=== PATIENT | male | born 1940 | race African-American/Black ===

== ENCOUNTER 2018-10-14 01:19 | Inpatient (IN) | payer OTHER ==
[~2018-10-14] VITALS: Ht 162.6 cm; Wt 68.7 kg
[~2018-10-14 01:19] MED LIST: ALBUTEROL INHAL17 GM IH; ASPIRIN325; CARVEDILOL25 MG PO; COUMADIN 5 MG TA5 M1 PO; FUROSEMIDE 40 M40 M1 PO; K-DUR10 ME1 PO; LISINOPRIL20 MG PO; PREDNISONE50 MG PO; VIBRAMYCIN 100100 MG PO; XANAX 1 MG TABLE1 MG PO
[2018-10-14 01:38] VITALS: BP 134/65
[2018-10-14 02:20] LABS: ABSOLUTE NEUTROPHILS 6.9 thou/uL (1.4-8.2); BASOPHILS 0.3 % (0.0-2.0); EOSINOPHILS 1.6 % (0.0-3.0); HEMATOCRIT 38.7 % (42.0-52.0); HEMOGLOBIN 12.6 gm/dL (14.0-18.0); LYMPHOCYTES 5.3 % (24.0-44.0); MCH 28.2 pg (26.0-34.0); MCHC 32.5 g/dL (28.0-37.0); MCV 86.7 fL (80.0-100.0); MONOCYTES 5.2 % (1.0-8.0); PLATELET COUNT 374 thou/uL (150-400); POLYS 87.6 % (36.0-66.0); RBC 4.46 mil/uL (4.50-6.00); RDW 16.1 % (10.5-14.5); WBC 7.9 thou/uL (4.0-11.0)
[2018-10-14 02:24] LABS: ANION GAP 9 mmol/L (7-16); BUN 29 mg/dL (7-18); CALCIUM 9.6 mg/dL (8.5-10.1); CHLORIDE 108 mmol/L (98-107); CO2 27 mmol/L (21-32); CREATININE 1.4 mg/dL (0.7-1.3); GLUCOSE 114 mg/dL (74-106); SODIUM 144 mmol/L (136-145)
[2018-10-14 02:29] LABS: APTT 27.8 Seconds (24.5-32.8); PROTIME 10.5 Seconds (9.3-11.4)
[2018-10-14 02:33] LABS: ALBUMIN 2.9 g/dL (3.4-5.0); LIPASE 251 U/L (73-393); MAGNESIUM 2.2 mg/dL (1.8-2.4); SGOT 15 U/L (15-37); SGPT 18 U/L (30-65); TOTAL BILIRUBIN 0.3 mg/dL (<0.1-1.0); TOTAL PROTEIN 8.1 g/dL (6.4-8.2); TROPONIN-I <0.06 ng/mL (<0.06)
[2018-10-14 02:42] LABS: POTASSIUM 5.7 mmol/L (3.5-5.1)
[2018-10-14 03:05] LABS: CASTS None Seen /LPF (None Seen); MUCUS None Seen strn/LPF (None Seen); SQUAMOUS None Seen /LPF (0-3); URINE RBC 3-10 Few /HPF (0-2); URINE WBC-REFLEX >25 Many /HPF (0-5)
[2018-10-14 03:06] LABS: BACTERIA-REFLEX >30 Many /HPF (None Seen); CRYSTALS None Seen /LPF (None Seen)
[2018-10-14 03:23] LABS: URINE CLARITY CLOUDY; URINE COLOR YELLOW
[2018-10-14 03:24] LABS: URINE BILIRUBIN NEGATIVE (Negative); URINE GLUCOSE-RANDOM* NEGATIVE (Negative); URINE KETONES NEGATIVE (Negative); URINE PROTEIN (DIPSTICK) 2+ (Negative)
[2018-10-14 03:25] LABS: URINE BLOOD 2+ (Negative); URINE LEUKOCYTES-REFLEX 3+ (Negative); URINE NITRITE-REFLEX POSITIVE (Negative); URINE UROBILINOGEN 0.2 E.U./dl (0.2-1.0)
[2018-10-14 04:43] VITALS: BP 138/64
--- NOTE | 2018-10-14 05:15 | NUR ---
Pt. admitted to the unit from the emergency room accompanied by staff. He is alert with some confusion. Admission assessment and history is completed. No c/o shortness of air. No emesis. Bed alarm is on.
[2018-10-14 05:30] VITALS: BP 155/59
[2018-10-14] MEDS ORDERED: VITAMIN D1000 UNI1 PO (05:52)
[2018-10-14] MEDS ORDERED: HYDRALAZINE 2525 MG PO (05:54)
[2018-10-14] MEDS ORDERED: IRON325 PO (05:55)
[2018-10-14] MEDS ORDERED: FLOMAX0.4 MG PO (05:56)
[2018-10-14] MEDS ORDERED: VITAMIN B-1100 M1 PO (05:56)
[2018-10-14] MEDS ORDERED: MILK OF MA2400 MG/10 PO (05:59)
[2018-10-14] MEDS ORDERED: LIDOCAINE 2%2 %/5 GM TRANSDERM (06:01)
[2018-10-14] MEDS ORDERED: PROSCAR 5MG TABL5 MG PO (06:09)
[2018-10-14 07:22] VITALS: BP 136/58
--- NOTE | 2018-10-14 09:00 | NUR ---
cm visited with pt at bedside, rt dcp, transition back to [place]. "yep ok"/reginald. pt is a & o 2-3 with some forgetfulness, pleasant and able to make his needs now. pt reports " doesnt usually wear oxygen at facility , uses wheel chair. able to stand with assistance. able to feed him self, if set up for meal."/reginald. will cont following as needed for dc needs.
--- NOTE | 2018-10-14 12:15 | 2DMMODE ---
[facility] [place] [address] 2 D/M-MODE ECHOCARDIOGRAM Name: ZHENGRHYS Badillo Room #: 452-P ADM IN .R.#: [id number] Admission: 10/14/18 Attend Phys: Jason Alva MD Discharge: Date of : 40 Date of Service: 10/14/18 1215 Report #: [id number] THIS REPORT FOR: //name// APPROVED REPORT Study performed: 10/14/2018 11:15:58 EXAM: Comprehensive 2D, Doppler, and color-flow Echocardiogram Patient Location: Bedside Room #: [facility] Status: routine BSA: 1.74 HR: 68 bpm BP: 136/58 mmHg Rhythm: Pacemaker/Irregular Other Information Study Quality: Adequate Technically limited study due to heavy snoring/lungs.. Indications Acute respiratory failure. Hx: Pacemaker, CHF, PE, HTN, Tob, Etoh abuse. 2D Dimensions RVDd: 35.66 mm IVSd: 12.85 (7-11mm) LVOT Diam: 19.66 (18-24mm) LVDd: 40.13 mm PWd: 12.32 (7-11mm) Ascending Ao: 31.55 (22-36mm) LVDs: 25.68 (25-40mm) Aortic Root: 31.47 mm Volumes Left Atrial Volume (Systole) Single Plane 4CH: 32.28 mL Single Plane 2CH: 64.64 mL LA ESV Index: 29.00 mL/m2 Aortic Valve AoV Peak Adam.: 1.62 m/s AO Peak Gr.: 10.50 mmHg LVOT Max P.74 mmHg LVOT Max V: 1.20 m/s JEREMIAH Vmax: 2.24 cm2 Mitral Valve [facility] [address] [address] 2 D/M-MODE ECHOCARDIOGRAM [facility] Room #: 452-P ADM IN ..#: [id number] Admission: 10/14/18 Attend Phys: Jason Alva MD Discharge: Date of : 40 Date of Service: 10/14/18 1215 Report #: [id number] MV Decel. Time: 153.92 ms MV E Max Adam.: 1.30 m/s Pulmonary Valve PV Peak Adam.: 1.21 m/s PV Peak Gr.: 5.90 mmHg Tricuspid Valve TR Peak Adam.: 2.27 m/s RAP Estimate: 10.00 mmHg TR Peak Gr.: 20.57 mmHg PA Pressure: 31.00 mmHg Left Ventricle The left ventricle is normal size. There is normal LV segmental wall motion. Mild concentric left ventricular hypertrophy. Left ventricular systolic function is normal. LVEF is 60-65%. This study is not technically sufficient to allow evaluation of the LV diastolic function. Right Ventricle The right ventricle is normal size. The right ventricular systolic function is normal. Atria The left atrium size is normal. The right atrium size is normal. Pacemaker lead is present in the right atrium. Aortic Valve Aortic valve leaflets is mildly thickened and calcified. Trace aortic regurgitation. There is no aortic valvular stenosis. Mitral Valve Mitral valve leaflets are mildly thickened. Trace mitral regurgitation. No evidence of mitral valve stenosis. Tricuspid Valve The tricuspid valve is normal in structure. Trace to mild tricuspid regurgitation. Estimated PAP is 30mmHg. Pulmonic Valve The pulmonary valve is normal in structure. Trace pulmonic regurgitation. Great Vessels The aortic root is normal in size. The ascending aorta is normal in size. IVC is dilated and collapses <50% with inspiration. [facility] [address] [place] [address] 2 D/M-MODE ECHOCARDIOGRAM Name: [facility] Room #: 452-P [facility] IN .R.#: [id number] Admission: 10/14/18 Attend Phys: Jason Alva MD Discharge: Date of : 40 Date of Service: 10/14/18 1215 Report #: [id number] Pericardium There is no pericardial effusion. <Conclusion> The left ventricle is normal size. Mild concentric left ventricular hypertrophy. Left ventricular systolic function is normal. The right ventricle is normal size. The left atrium size is normal. The right atrium size is normal. Pacemaker lead is present in the right atrium. Aortic valve leaflets is mildly thickened and calcified. Trace aortic regurgitation. Trace mitral regurgitation. Trace to mild tricuspid regurgitation. Estimated PAP is 30mmHg. <ELECTRONICALLY SIGNED> By: Leonardo Palmer MD 10/14/185 14 14 Leonardo Palmer MD /INF
[2018-10-14 15:03] VITALS: BP 136/66
--- NOTE | 2018-10-14 16:29 | EKG ---
[address] [place] [email or web address] [address] ELECTROCARDIOGRAM REPORT Name: RHYS CALZADA Room #: 452-P ADM IN M.R.#: [id number] Admission: 10/14/18 Attend Phys: Jason Alva MD Discharge: Date of : 40 Report #: [id number] THIS REPORT FOR: //name// [facility] ED Test Date: 2018-10-14 Test Time: 02:14:09 Pat Name: RHYS CALZADA Department: Room: [facility] Gender: M Outpatient Psychiatrist: MADELYN : 1940 Requested By: Sebas Ferrera Order Number: [id number] MD: Jb Gallardo Measurements Intervals [place] Rate: 82 P: 48 TN: 225 QRS: 30 QRSD: 82 T: 269 QT: 398 QTc: 465 Interpretive Statements Sinus rhythm Prolonged TN interval Probable left atrial enlargement LVH with secondary repolarization abnormality Anterior ST elevation, probably due to LVH Compared to ECG 09/30/2010 03:44:53 ST (T wave) deviation now present Prolonged QT interval no longer present Electronically Signed On 10-14-2018 16:29:28 SYSTEMS DEVELOPMENT MANAGER by Jb Gallardo [email or web address] <ELECTRONICALLY SIGNED> By: Jb Gallardo MD 10/14/18 1629 3 Jb Gallardo MD /EPI
--- NOTE | 2018-10-14 16:32 | EKG ---
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
[2018-10-14 19:47] VITALS: BP 122/52
--- NOTE | 2018-10-14 20:11 | NUR ---
ASSUMED CARE OF PT AT 0700. ASSESSMENT COMPLETED. ALERT, ORIENTED TO PERSON, PLACE, SITUATION. ANSWERS QUESTIONS APPROPRIATELY, SOME CONFUSION AND FORGETFULNESS NOTED. DENIES PAIN. DENIES N/V/D. [address], NO OXYGEN USE AT HOME NOTED. 1ST DEGREE AV BLOCK NOTED ON TELE, V. PACED, AND ASYMPTOMATIC BRADYCARDIA 40-60'S. DIALLO CATHETER IN PLACE ON ADMISSION, SOME BLEEDING NOTED AT INSERTION SITE. DARK STRAW COLORED URINE WITH SEDIMENT AND FOUL SMELL NOTED. DRY, FLAKEY BILAT LOWER EXTREMITIES. ONE LARGE LOOSE BROWN BOWEL MOVEMENT NOTED TODAY. VSS. PT IN STABLE CONDITION. END OF SHIFT.
[2018-10-15 04:04] VITALS: BP 129/64
[2018-10-15 05:49] LABS: ABSOLUTE NEUTROPHILS 5.5 thou/uL (1.4-8.2); BASOPHILS 0.1 % (0.0-2.0); HEMATOCRIT 32.9 % (42.0-52.0); LYMPHOCYTES 12.5 % (24.0-44.0); MCHC 32.3 g/dL (28.0-37.0); MCV 86.8 fL (80.0-100.0); MONOCYTES 4.6 % (1.0-8.0); PLATELET COUNT 308 thou/uL (150-400); POLYS 82.8 % (36.0-66.0); RBC 3.79 mil/uL (4.50-6.00); RDW 16.6 % (10.5-14.5); WBC 6.6 thou/uL (4.0-11.0)
[2018-10-15 06:00] LABS: HEMOGLOBIN 10.6 gm/dL (14.0-18.0)
[2018-10-15 06:14] LABS: CALCIUM 8.5 mg/dL (8.5-10.1); CREATININE 1.6 mg/dL (0.7-1.3); MAGNESIUM 2.1 mg/dL (1.8-2.4); POTASSIUM 5.3 mmol/L (3.5-5.1)
--- NOTE | 2018-10-15 06:22 | NUR ---
C/O PAIN IN BILATERAL HEELS. ELEVATED HEELS OFF END OF PILLOW. APPLIED LOTION TO DRY SKIN IN FEET, LOWER LEGS. REPORTED DISCOMFORT RELIEVED. ABLE TO SIT ON THE SIDE OF BED. ADEQUATE OXYGENATION ON 4LITERS, NOW DECREASED TO 3LITERS. PATIENT ABLE TO ASSIST WITH TURNING HIMSELF, REPOSITIONED Q2HRS. DIALLO CATHETER WITH STRAW COLORED URINE, DRAINING WELL WITH OCCASIONAL PENIS TIP PAIN. ABDOMEN ROUND, C/O GAS/BLOATING FEELING. HAD MAG CITRATE DURING DAY SHIFT. INCONTINENT BM X 1.
[2018-10-15 07:40] VITALS: BP 142/75
--- NOTE | 2018-10-15 07:50 | NUR ---
ASSUMED PT CARE AT 0700. ASSESSED PT AT 0715. PT AWAKE, ALERT/OIENTED X4. REPORTS SOME TROUBLE BREATHING DUE TO STUFFY NOSE. BREATHING APPEARS SLIGHTLY LABORED. REPORTS PAIN RATED 10/10 IN PENIS. CATHEER NOTED TO HAVE BLOOD PRESENT AND PULLED TIGHT WITH STATLOCK. REPLACE STATLOCK AND GAVE MORE SLACK IN CATHETER TO PREVENT PULLING. SCD'S APPLIED PER ORDERS. O2 AT 3L PER NC. DIALLO TO DD, STRAW COLOR. ABDOMEN APPEARS DISTENDED BUT IS SOFT AND BS ARE ACTIVE. PT STATES HIS HEALS BURN, SKIN IS INTACT. NEW IV SITE PLACED TO RIGHT FOREARM. WILL CONTINUE WITH CURRENT CARE.
--- NOTE | 2018-10-15 10:31 | NUR ---
OTR WENT TO EVALUATE PATIENT. PATIENT IS FUNCTIONING AT PRIOR LEVEL OF FUNCTION AT FACILITY AND DOES NOT NEED ACUTE OT. PT'S ADL STATUS IS THAT HE FEEDS HIMSELF AND ON OCCASION CAN MOVE THE WHEELCHAIR A BIT. HE GETS ASSIST WITH TRANSFERS. STAFF DRESSES AND SHOWERS AND GROOMS HIM DAILY. PT FED HIMSELF BREAKFAST THIS MORNING. PHYSICAL THERAPY WILL BE WORKING WITH FUNCTIONAL TRANSFERS (MIN A) AND STRENGTHING LE
--- NOTE | 2018-10-15 14:31 | NUR ---
PT BEGAN TO HAVE SHARP ABDOMINAL PAIN THIS MORNING AROUND 1100 HE THINKS IS RAIDIATING FROM HIS PENIS WHICH IS ALSO PAINFUL. HE RATES IT 10/10. UPON ASSISTING PT TO COMMODE THE DIALLO BEGAN TO DRAIN BLOODY URINE. PHYSICIAN NOTIFIED AND ORDER OBTAINED FOR MANUAL BLADDER IRRIGATION FOR A TOTAL OF 500 ML. 150 ML IRRIGATED AND URINE IS NOW CLEAR YELLOW. PT STATES PAIN IS BETTER. PT ALSO HAVING LIQUID STOOL CONTINUOUSLY TODAY. WILL CONTINUE TO MONITOR THIS.
[2018-10-15 15:56] VITALS: BP 171/84
--- NOTE | 2018-10-15 17:55 | NUR ---
PT CONTINUES TO HAVE LIQUID STOOLS. STOOL SENT FOR C-DIFF, NO RESULTS YET. CATHETER HAS BEEN MANUALLY IRRIGATED MULTIPLE TIMES FOR A TOTAL OF 250 ML OF NS. NO DRAINING CLEAR YELLOW URINE ABSENT OF BLOOD. WILL CONTINUE TO MONITOR.
[2018-10-15 20:00] VITALS: BP 160/76
[2018-10-16 05:06] VITALS: BP 184/87
[2018-10-16 06:09] VITALS: BP 150/89
[2018-10-16 07:26] VITALS: BP 186/84
--- NOTE | 2018-10-16 14:00 | NUR ---
DISCHARGE PLANNING. PATIENT IS A RESIDENT AT [facility]. PLAN IS FOR PATIENT OT RETURN TO [facility] ONCE MEDICALLY READY. UPDATED CLINICAL INFORMATION FAXED TO [facility]. SPOKE WITH [facility] TO NOTIFY OF CLINICAL UPDATES AND PATIENT PROGRESSION TOWARDS DISCHARGE. FOLLOWING TO ASSIST WITH DISCHARGE NEEDS.
[2018-10-16 15:00] VITALS: BP 188/93
--- NOTE | 2018-10-16 16:57 | NUR ---
IF PT IS MEDICALLY STABLE TO DISCHARGE OVER THE WEEKEND CONTACT [facility] AT TO ARRANGE TRANSPORT. FAX ORDERS TO .
[2018-10-16 19:39] VITALS: BP 179/92
--- NOTE | 2018-10-16 19:53 | NUR ---
PATIENT HAVING PAIN IN PENIS DUE TO SWELLING AND IRRITATION. PATIENT WANTED THIS RN TO REMOVE DIALLO. DR. CALDERON STATED OK TO REMOVE HOWEVER IF PATIENT CANNOT URINATE AND WE CANNOT GET THE DIALLO BACK IN HE WILL BE IN A LOT MORE PAIN. MEDICATED WITH OXY IR AND APPLIED ICE PACK. PATIENT SAT IN CHAIR ALL AFTERNOON WITH NO FURTHER COMPLAINTS. AROUND 5PM STARTED TO COMPLAIN AGAIN OF PENILE PAIN. OFFERED A PAIN PILL BUT REFUSED STATING I TAKE TOO MANY PILLS AND THAT IS NOT GOOD FOR ME. ALSO REFUSED ICE PACK. NIGHT RN ARRIVED AND DISCUSSED SITUATION WITH PATIENT AND HE FINALLY AGREED TO A PAIN PILL. MUCOUS NOTED TO DIALLO LATER TODAY. NO FURTHER BLOOD IN URINE. ATE ALL HIS MEALS. HAD ONE INCONTINENT LOOSE STOOL. PERICARE GIVEN.
[2018-10-17 02:55] VITALS: BP 179/61
--- NOTE | 2018-10-17 03:57 | NUR ---
ASSUMED CARE OF PT AT START OF SHIFT PT C/O OF PT AT TIP OF PENIS , TALKED PT INTO TAKING PAIN PILL, PT STATES HE FEELS MUCH BETTER AFTER PILL TAKEN CLEAR YELLOW URINE NOTED IN DIALLO BAG PT SLEPT 80 % OF SHIFT IN CHAIR NSR ON FUR CUTTING MACHINE OPERATOR.
[2018-10-17 05:28] LABS: HEMATOCRIT 33.9 % (42.0-52.0); HEMOGLOBIN 11.3 gm/dL (14.0-18.0); MCHC 33.3 g/dL (28.0-37.0); MCV 87.2 fL (80.0-100.0); RBC 3.89 mil/uL (4.50-6.00); RDW 16.5 % (10.5-14.5); WBC 10.8 thou/uL (4.0-11.0)
[2018-10-17 05:48] LABS: CALCIUM 8.6 mg/dL (8.5-10.1); CREATININE 1.5 mg/dL (0.7-1.3); POTASSIUM 4.2 mmol/L (3.5-5.1)
[2018-10-17 08:04] VITALS: BP 155/57
[2018-10-17 14:44] VITALS: BP 179/76
--- NOTE | 2018-10-17 15:00 | NUR ---
ASSUMED CARE AT 0700. IV REPLACED TO L HAND. SEEN BY DR.AL JOHNSTON. PER MD, PT WILL STAY HERE OVER THE WEEKEND DUE TO PT REFUSED TO GO BACK TO HIS OLD FACILITY. PER MD, SW WILL F/U ON FRI. ATB CHANGED TO LEVAQUIN PO BID BASED ON UTI CULTURE RESULTS. PT WAS KEPT UPRIGHT FOR MEALS AND KEPT UPRIGHT 30-45MIN AFTER MEALS TO PREVENT ASPIRATION. AXOX4. PLACED RIGHT NEXT NURSING STATION TO BETTER ATTEND THE PT. DIALLO INTACT AND NO BLEEDING NOTED DRAINING LIGHT YELLOW URINE. NO S/S ACUTE DISTRESS NOTED OR REPORTED AT THIS TIME. WILL CONT TO MONITOR CHANGES IN CONDITION.
[2018-10-17 17:38] VITALS: BP 148/80
[2018-10-17 19:58] VITALS: BP 150/70
--- NOTE | 2018-10-18 03:33 | NUR ---
ASSESSMENT: PT REMAIN ALERT AND ORIENT TIMES THREE. WANTED TO SAT UP IN CHAIR ALL NIGHT. DENIED PAIN, SOB AND NAUSEA. SR PER MONITOR. VSS, AFEBRILE. PT STATE AGAIN THAT HE DOES NOT WANT TO GO BACK TO [facility], DIRECTOR OF DIRECT MARKETING IS AWARE AND IS TO SPEAK MORE ABOUT IT TO THE PT. NO ASPIRATION THIS SHIFT. TOLERATED PO INTAKE. DIALLO IS PATENT AND UO ADEQUATE AMOUNT. SLOW PROGRESS TOWARDS DC GOALS. WILL CONTINUE TO MONITOR.
[2018-10-18 03:53] VITALS: BP 151/56
[2018-10-18 05:33] LABS: ALBUMIN 2.8 g/dL (3.4-5.0); CALCIUM 8.8 mg/dL (8.5-10.1); CREATININE 1.3 mg/dL (0.7-1.3); TOTAL BILIRUBIN 0.4 mg/dL (<0.1-1.0); TOTAL PROTEIN 6.7 g/dL (6.4-8.2)
[2018-10-18 05:36] LABS: POTASSIUM 4.5 mmol/L (3.5-5.1)
[2018-10-18 06:49] LABS: HEMATOCRIT 34.6 % (42.0-52.0); HEMOGLOBIN 11.3 gm/dL (14.0-18.0); MCH 28.3 pg (26.0-34.0); MCHC 32.7 g/dL (28.0-37.0); MCV 86.7 fL (80.0-100.0)
[2018-10-18 08:00] VITALS: BP 179/70
--- NOTE | 2018-10-18 14:02 | NUR ---
ASSUMED CARE AT 0700. PT SEEN BY DR.AL JOHNSTON AT BEDSIDE. NEW ORDERED NOTED. ALSO SEEN BY FROM GI. EGD TOMORROW WITH . CONSENT SIGNED AND VERIFIED BY 2 RNS AT BEDSIDE. DIALLO INTACT DRAINING YELLOW URINE. NO BLEEDING FROM PENIS OR THE DIALLO LINE/BAG NOTED AT THIS TIME. HIGH BP ADRESSED WITH DR.AL JOHNSTON AND NEW BP MED ORDERED. NO S/S ACUTE DISTRESS NOTED OR REPORTED AT THIS TIME. WILL CONT TO MONITOR FOR ANY CHANGES IN CONDITION.
[2018-10-18 15:00] VITALS: BP 153/73
[2018-10-18 19:12] VITALS: BP 152/61
[2018-10-19 04:21] VITALS: BP 168/77
[2018-10-19 05:39] LABS: HEMATOCRIT 39.5 % (42.0-52.0); MCH 28.4 pg (26.0-34.0); MCHC 32.8 g/dL (28.0-37.0); MCV 86.6 fL (80.0-100.0); RBC 4.55 mil/uL (4.50-6.00); RDW 16.6 % (10.5-14.5); WBC 10.3 thou/uL (4.0-11.0)
--- NOTE | 2018-10-19 05:50 | NUR ---
NPO SINCE MIDNIGHT FOR EGD 10/19. NO BM, NAUSEA, DIARRHEA DURING THE NIGHT. ADEQUATE VOIDING PER CHRONIC DIALLO CATHETER, RECEIVING PO LASIX. PATIENT ASSISTED WITH REPOSITIONING Q2HRS. ANTICIPATING DISCHARGE WHEN PLACEMENT CAN BE MADE, NO LONGER WISHES TO REMAIN AT CURRENT FACILITY.
[2018-10-19 06:13] LABS: ALBUMIN 2.9 g/dL (3.4-5.0); CALCIUM 9.3 mg/dL (8.5-10.1); CREATININE 1.3 mg/dL (0.7-1.3); POTASSIUM 3.4 mmol/L (3.5-5.1); TOTAL BILIRUBIN 0.4 mg/dL (<0.1-1.0); TOTAL PROTEIN 7.4 g/dL (6.4-8.2)
[2018-10-19 07:44] VITALS: BP 147/66
--- NOTE | 2018-10-19 15:05 | NUR ---
PT A/OX4, PAIN MANAGED WITH MEDICATIOS, TODAY EGD COMPLETED WITH PLANS TO REPEATE IN 2-3 WEEKS OUTPATIENT. PT DIALLO PATENT, NO BM AT THIS TIME. HE REMAINS CALM AND COMPLIANT WITH CARES. SINUS NEPTALI ON TELE. UP WITH STAND BY ASSIST. CALLS APPROPRIATELY. PLANS TO DC BACK TO HIS FACILITY. CALL LIGHT IN REACH.
--- NOTE | 2018-10-19 15:30 | NUR ---
CARE TEAM INDICATED THAT THEY ANTICPATED THAT PT WILL BE MEDICALY STABLE TO RETURN TO [facility] TOMORROW Friday10/20/18. CM NOTIFIED [facility] THEIR LIASION. ORDERES ARE TO BE FAXED ONCE COMPLETED. CHART COPY IS MADE. TRANSPORT TO BE ARRANGED AND REPORT TO BE CALLED. CM TO FOLLOW INDICATED WITH DC PLANNING.
[2018-10-19 16:30] VITALS: BP 146/53
[2018-10-19 18:57] VITALS: BP 139/60
[2018-10-20 04:33] VITALS: BP 126/51
[2018-10-20 04:36] VITALS: BP 150/60
[2018-10-20 07:15] VITALS: BP 160/59
[2018-10-20 09:05] VITALS: BP 160/59
[2018-10-20] MEDS ORDERED: COZAAR100 MG PO (13:30)
[2018-10-20] MEDS ORDERED: LEVAQUIN 500 M500 M4 PO (13:30)
[2018-10-20] MEDS ORDERED: NORVASC10 MG PO (13:30)
--- NOTE | 2018-10-20 14:39 | NUR ---
dp set up transportation with [facility], patient dc today, pickup 5 to 530pm. dp sent to facility, unit notified, chart copy made.
--- NOTE | 2018-10-20 15:12 | NUR ---
CARE TEAM INDICATED PT IS MEDICALLY STABLE TO DISHCARGE BACK TO [facility] THIS DAY. [facility]SP[facility] IS ARRANGED FOR [id number]. CHART COPY IS MADE. ORDERS HAVE BEEN FAXED. REPORT TO BE CALLED TO . PT IS AWARE, HE INDICATED THAT HE WANTS TO GO SOMEWHERE ELSE HE HAS TO GO OUTSIDE TO SMOKE AT THE FACILITY. CM INDICATED THAT PT CAN REQUEST ASSISTANCE FOR SW AT FACILITY TO FIND ALTERNATE PLACEMENT. NO OTHER CM INTERVENTION INDICATED AT THIS TIME. CASE CLOSED.
--- NOTE | 2018-10-20 16:18 | NUR ---
ASSUMED CARE AT 0700. AXOX4. TELE D/C PER . RECEIVED AN ORDER TO D/C PT BACK TO [facility]. REPORT CALLED TO GLO AT [facility]. DIALLO INTACT DRAINING CLEAR YELLOW URINE. NO S/S ACUTE DISTRESS NOTED OR REPORTED AT THIS TIME. WILL CONT TO MONITOR FOR ANY CHANGES IN CONDITION.
== END 2018-10-20 16:53 | DRG 698 ==
LOC: ER 01:19 → 4W 04:14 → EROBS 04:14 → 4W 05:11
PROVIDERS: Emergency Medicine; Hospitalist; Internal Medicine; Nurse Practitioner; ADMIT Hospitalist
DX: T83.028A Displacement of other urinary catheter, initial encounter (principal); J69.0 Pneumonitis due to inhalation of food and vomit; J96.01 Acute respiratory failure with hypoxia; N17.9 Acute kidney failure, unspecified; J98.11 Atelectasis; E46 Unspecified protein-calorie malnutrition; I13.0 Hypertensive heart and chronic kidney disease with heart failure and stage 1 through stage 4 chronic kidney disease, or unspecified chronic kidney disease; F03.90 Unspecified dementia, unspecified severity, without behavioral disturbance, psychotic disturbance, mood disturbance, and anxiety; I73.9 Peripheral vascular disease, unspecified; F17.210 Nicotine dependence, cigarettes, uncomplicated; N30.90 Cystitis, unspecified without hematuria; E87.5 Hyperkalemia; E86.0 Dehydration; N40.1 Benign prostatic hyperplasia with lower urinary tract symptoms; R33.8 Other retention of urine; N18.3 Chronic kidney disease, stage 3 (moderate); Y83.8 Other surgical procedures as the cause of abnormal reaction of the patient, or of later complication, without mention of misadventure at the time of the procedure; K40.20 Bilateral inguinal hernia, without obstruction or gangrene, not specified as recurrent; K21.9 Gastro-esophageal reflux disease without esophagitis; I50.9 Heart failure, unspecified; Z71.6 Tobacco abuse counseling; Z99.3 Dependence on wheelchair; Y92.89 Other specified places as the place of occurrence of the external cause; Z86.711 Personal history of pulmonary embolism; Z95.0 Presence of cardiac pacemaker; Z79.82 Long term (current) use of aspirin; Z79.899 Other long term (current) drug therapy; Z88.8 Allergy status to other drugs, medicaments and biological substances
CPT/HCPCS: 10045

== ENCOUNTER 2019-06-29 21:14 | Emergency (ER) | payer OTHER ==
[~2019-06-29] VITALS: Ht 170.2 cm; Wt 68.0 kg
--- NOTE | ~2019-06-29 | EMS ---
[facility] [address] [place] [address] EMS Patient Care Report Name: RHYS CALZADA Room #: REG DAVIN Galindo#: [id number] Admission: 06/29/19 Attend Phys: Discharge: Date of : 40 Report #: [id number] THIS REPORT FOR: //name// Report Transmitted: 06/29/2019 20:50 EMS Care Summary [place], [place]/[facility] Incident [phone] @ 06/29/2019 20:41 Incident Location [id number] [place] [address] 408 Patient RHYS CALZADA Male, 79 Years 1940 Patient Address [address] [place], [place] [id number] Patient Allergies Lisinopril, Patient Medications Tamsulosin, Docusate Sodium, Finasteride, Furosemide, Senna, Carvedilol, Acetaminophen, Hydralazine, Aspirin, Chief Complaint CONSTIPATION Disposition Transported No Lights/[place] Dispatch Reason Abdominal Pain/Problems Transported To [facility] Narrative M36 ARRIVES TO FIND 79 Y/O M PT STATING THAT HE FEELS CONSTIPATED. PT WAS GIVEN A LAXATIVE APPROXIMATELY 20 MINUTES INDUST[facility]AL REHABILITATION CONSULTANT HOWEVER THE PT SAYS HE IS HAVING A MEDICAL EMERGENCY AND NEEDS TO GO TO AN ER. ASSESSMENTS AND TREATMENTS NOTED. PT AMBULATORY WITH ASSISTANCE AND MOVES TO COT. PT MOVED TO AMBULANCE. PT [address] [address] EMS Patient Care Report Name: RHYS CALZADA Room #: DANAY Galindo#: [id number] Admission: 06/29/19 Attend Phys: Discharge: Date of : 40 Report #: [id number] TRANSPORTED. M36 ARRIVES AT DESTINATION. PT MOVED TO ROOM IN ED. PT MOVED TO BED IN ROOM VIA DRAWSHEET METHOD. PT CARE TRANSFERRED. M36 RETURNS TO SERVICE. Initial Vitals @21:03P: 82,BP: 166/85,CO: 6,SpO2: 96, @21:00P: 78,R: 18,BP: 156/82,Pain: 0/10,GCS: 15,CO: 6,SpO2: 94,Revised Trauma: 12, Assessments @21:05MENTAL:No Abnormalities,SKIN:No Abnormalities,HEENT:Head/Face: No Abnormalities,Eyes: No Abnormalities,Neck/Airway: No Abnormalities,LUNG SOUNDS:General: Other,Left Upper: No Abnormalities,Right Upper: No Abnormalities,Left Lower: No Abnormalities,Right Lower: No Abnormalities,ABDOMEN:General: Other,Left Upper: No Abnormalities,Right Upper: No Abnormalities,Left Lower: No Abnormalities,Right Lower: No Abnormalities,PELVIS//GI:No Abnormalities,EXTREMITIES:Left Arm: No Abnormalities,Right Arm: No Abnormalities,Left Leg: No Abnormalities,Right Leg: No Abnormalities,PULSE:NEURO:No Abnormalities,@21:06MENTAL:No Abnormalities,SKIN:No Abnormalities,HEENT:Head/Face: No Abnormalities,Eyes: No Abnormalities,Neck/Airway: No Abnormalities,LUNG SOUNDS:General: Other,Left Upper: No Abnormalities,Right Upper: No Abnormalities,Left Lower: No Abnormalities,Right Lower: No Abnormalities,ABDOMEN:General: Other,Left Upper: No Abnormalities,Right Upper: No Abnormalities,Left Lower: No Abnormalities,Right Lower: No Abnormalities,PELVIS//GI:No Abnormalities,EXTREMITIES:Left Arm: No Abnormalities,Right Arm: No Abnormalities,Left Leg: No Abnormalities,Right Leg: No Abnormalities,PULSE:NEURO:No Abnormalities, Impression Constipation Procedures @21:05ALS AssessmentResponse: UnchangedSucceeded Timeline 20:36,Call Received 20:36,Dispatch Notified 20:41,Dispatched 20:41,En Route 20:52,On Scene 20:53,At Patient 21:00,BP: 156/82 M,PULSE: 78,RR: 18 R,SPO2: 94 Ox,ETCO2: ,BG: ,PAIN: 0,GCS: 15, 21:03,BP: 166/85 M,PULSE: 82,RR: R,SPO2: 96 Ox,ETCO2: ,BG: ,PAIN: ,GCS: , 21:03,Depart Scene 21:05,ALS Assessment,Response: UnchangedSucceeded, 21:11,At Destination [address] [address] EMS Patient Care Report Name: CALZADALINCOLN Room #: REG DAVIN Galindo#: [id number] Admission: 06/29/19 Attend Phys: Discharge: Date of : 40 Report #: [id number] 21:18,Call Closed Disclaimer [email or web address] Copyright 2019 [employer] This EMS Care Summary contains data elements from the applicable legal record (which may be displayed differently). It is designed to provide pertinent information for the following purposes: continuity of care, clinical quality, and state data reporting. The complete legal record is available to ED staff and administrators of the receiving hospital in [employer]'s Patient Tracker. All data is provided "as is."
[~2019-06-29 21:14] MED LIST changes: +COZAAR100 MG PO; +FLOMAX0.4 MG PO; +HYDRALAZINE 2525 MG PO; +IRON325 PO; +LEVAQUIN 500 M500 M4 PO; +LIDOCAINE 2%2 %/5 GM TRANSDERM; +MILK OF MA2400 MG/10 PO; +NORVASC10 MG PO; +PROSCAR 5MG TABL5 MG PO; +VITAMIN B-1100 M1 PO; +VITAMIN D1000 UNI1 PO
[2019-06-30 00:27] VITALS: BP 137/67
== END 2019-06-30 01:17 ==
LOC: ER 21:14
DX: K59.00 Constipation, unspecified (principal); I11.0 Hypertensive heart disease with heart failure; I50.9 Heart failure, unspecified; K21.9 Gastro-esophageal reflux disease without esophagitis; F17.210 Nicotine dependence, cigarettes, uncomplicated; Z95.0 Presence of cardiac pacemaker; Z86.711 Personal history of pulmonary embolism; Z88.6 Allergy status to analgesic agent; Z88.8 Allergy status to other drugs, medicaments and biological substances

== ENCOUNTER 2019-07-05 07:34 | Inpatient (IN) | payer OTHER ==
[~2019-07-05] VITALS: Ht 165.1 cm; Wt 65.0 kg
[2019-07-05 07:36] VITALS: BP 115/70
[2019-07-05] MEDS ORDERED: ASA81BEC PO (09:45)
[2019-07-05] MEDS ORDERED: HYDRALAZINE 5050 MG PO (10:00)
[2019-07-05] MEDS ORDERED: PROAIR HFA8.5 GM INH (10:04)
[2019-07-05] MEDS ORDERED: SENNA PLUS TAB1 EACH PO (10:06)
[2019-07-05] MEDS ORDERED: COLACE100 MG PO (10:07)
[2019-07-05] MEDS ORDERED: ACETAMINOPHEN325 M1 PO (10:09)
[2019-07-05] MEDS ORDERED: MIRALAX119 GM PO (10:10)
[2019-07-05] MEDS ORDERED: LAC-HYDRIN FIV226 GM TOP (10:11)
[2019-07-05 11:04] LABS: HEMATOCRIT 41.7 % (42.0-52.0); HEMOGLOBIN 13.4 gm/dL (14.0-18.0); MCH 29.3 pg (26.0-34.0); MCHC 32.1 g/dL (28.0-37.0); MCV 91.3 fL (80.0-100.0); RBC 4.56 mil/uL (4.50-6.00); RDW 18.7 % (10.5-14.5); WBC 6.1 thou/uL (4.0-11.0)
[2019-07-05 11:08] LABS: CALCIUM 9.4 mg/dL (8.5-10.1); CREATININE 1.4 mg/dL (0.7-1.3); POTASSIUM 5.2 mmol/L (3.5-5.1)
[2019-07-05 11:57] VITALS: BP 131/55
[2019-07-05 13:46] VITALS: BP 153/62
[2019-07-05 13:50] VITALS: BP 158/64
[2019-07-05 16:00] VITALS: BP 146/73
[2019-07-05 19:44] VITALS: BP 172/75
[2019-07-06 01:25] VITALS: BP 142/76
[2019-07-06 05:31] VITALS: BP 168/75
[2019-07-06 05:41] LABS: HEMATOCRIT 32.5 % (42.0-52.0); MCH 29.4 pg (26.0-34.0); MCHC 32.3 g/dL (28.0-37.0); MCV 90.9 fL (80.0-100.0); RBC 3.57 mil/uL (4.50-6.00); WBC 9.8 thou/uL (4.0-11.0)
[2019-07-06 05:42] LABS: HEMOGLOBIN 10.5 gm/dL (14.0-18.0)
[2019-07-06 05:56] LABS: CALCIUM 8.8 mg/dL (8.5-10.1); CREATININE 1.3 mg/dL (0.7-1.3)
[2019-07-06 06:03] LABS: POTASSIUM 4.2 mmol/L (3.5-5.1)
[2019-07-06 08:15] VITALS: BP 160/74
[2019-07-06 16:54] VITALS: BP 160/66
[2019-07-06 19:36] VITALS: BP 166/74
[2019-07-06 23:16] VITALS: BP 170/62
[2019-07-07 03:33] VITALS: BP 192/77
[2019-07-07 03:57] VITALS: BP 172/62
[2019-07-07 07:42] VITALS: BP 151/53
[2019-07-07] MEDS ORDERED: LORATIDINE 10 M10 M1 PO (13:05)
[2019-07-07] MEDS ORDERED: PREDNISONE 10 M10 M1 PO (13:07)
[2019-07-07 16:51] VITALS: BP 153/63
[2019-07-07 16:53] VITALS: BP 153/63
== END 2019-07-07 18:22 | DRG 916 ==
LOC: ER 07:34 → EROBS 11:46 → 4W 13:47
PROVIDERS: Emergency Medicine; ADMIT Hospitalist
DX: T78.3XXA Angioneurotic edema, initial encounter (principal); I13.0 Hypertensive heart and chronic kidney disease with heart failure and stage 1 through stage 4 chronic kidney disease, or unspecified chronic kidney disease; I73.9 Peripheral vascular disease, unspecified; N40.0 Benign prostatic hyperplasia without lower urinary tract symptoms; K21.9 Gastro-esophageal reflux disease without esophagitis; K59.00 Constipation, unspecified; I50.9 Heart failure, unspecified; N18.9 Chronic kidney disease, unspecified; F17.210 Nicotine dependence, cigarettes, uncomplicated; Z79.82 Long term (current) use of aspirin; Z95.0 Presence of cardiac pacemaker; Z79.899 Other long term (current) drug therapy; Z86.711 Personal history of pulmonary embolism; Z88.8 Allergy status to other drugs, medicaments and biological substances; Z79.1 Long term (current) use of non-steroidal anti-inflammatories (NSAID); Z23 Encounter for immunization
CPT/HCPCS: 10040